=== PATIENT | female | born 1965 | race Caucasian/White ===

== ENCOUNTER 2018-04-12 09:36 | Day surgery (SDC) | payer OTHER, MEDICAID ==
[~2018-04-12 09:36] MED LIST: ceFAZolin 2 GM/DEXTROSE 100 ML IV ONE; ceFAZolin 2 GM/SWFI 2 GM/20 ML SYR IVP ONE
[2018-04-12] MEDS ORDERED: LR 1,000 ML IV ONE (09:42)
[2018-04-12] MEDS ORDERED: BUPIVACAINE 0.5% 30 ML SDV ONE (09:47)
--- NOTE | 2018-04-12 10:20 | PDANEPAE ---
ANE History of Present Illness umbilical hernia repair ANE Past Medical History - Cardiovascular History Hx Hypertension: No Hx Arrhythmias: No Hx Chest Pain: No Hx Coronary Artery / Peripheral Vascular Disease: No Hx CHF / Valvular Disease: No Hx Palpitations: No - Pulmonary History Hx COPD: No Hx Asthma/Reactive Airway Disease: No Hx Recent Upper Respiratory Infection: No Hx Oxygen in Use at Home: No Hx Sleep Apnea: No Sleep Apnea Screening Result - Last Documented: Negative - Neurologic History Hx Cerebrovascular Accident: No Hx Seizures: No Hx Dementia: No - Endocrine History Hx Diabetes: No - Renal History Hx Renal Disorders: No - Liver History Hx Hepatic Disorders: No - Neurological & Psychiatric Hx Hx Neurological and Psychiatric Disorders: No - Cancer History Hx Cancer: No - Congenital Disorder History Hx Congenital Disorders: No - GI History Hx Gastrointestinal Disorders: No - Other Health History Other Health History: none - Chronic Pain History Chronic Pain: No - Surgical History Prior Surgeries: ankle and knee surgery ANE Review of Systems Review of Systems: - Exercise capacity METS (RN): 4 METS ANE Patient History - Allergies Allergies/Adverse Reactions: No Known Allergies Allergy (Verified 04/09/18 16:47) - Home Medications Home Medications: NK [No Known Home Meds] 04/09/18 [Last Taken Unknown] - NPO status NPO Since - Liquids (Date): 04/12/18 NPO Since - Liquids (Time): 09:00 NPO Since - Solids (Date): 04/11/18 NPO Since - Solids (Time): 21:00 - Anes Hx Anes Hx: no prior problems - Smoking Hx Smoking Status: Former smoker - Alcohol Use Alcohol Use: Other (1 drink/2 weeks) - Family Anes Hx Family Anes Hx: none Family Hx Anesthesia Complications: none ANE Labs/Vital Signs - Vital Signs Blood Pressure: 117/76 Heart Rate: 65 Respiratory Rate: 16 O2 Sat (%): 98 Height: 167.64 cm Weight: 77.111 kg ANE Physical Exam - Airway Neck exam: FROM Mallampati Score: Class 1 Mouth exam: normal dental/mouth exam - Pulmonary Pulmonary: clear to auscultation - Cardiovascular Cardiovascular: regular rate and rhythym - ASA Status ASA Status: II ANE Anesthesia Plan Anesthesia Plan: GA with mask
[2018-04-12] MEDS ORDERED: MIDAZOLAM 2 MG/2 ML VIAL IVP ONE (10:40)
[2018-04-12] MEDS ORDERED: CEFAZOLIN 2 GM/DEXTROSE/100 ML BAG IV ONE (10:51)
[2018-04-12] MEDS ORDERED: fentaNYL 100 MCG/2 ML INJ ONE (10:59)
[2018-04-12] MEDS ORDERED: PROPOFOL 200 MG/20 ML VIAL ONE ×2 (10:59→11:18)
[2018-04-12] MEDS ORDERED: LIDOCAINE 1% 300 MG/30 ML SDV ONE (11:07)
[2018-04-12] MEDS ORDERED: fentaNYL 100 MCG/2 ML INJ IVP PRN (11:34)
[2018-04-12] MEDS ORDERED: ONDANSETRON 4 MG/2 ML VIAL IVP PRN (11:34)
[2018-04-12] MEDS ORDERED: NALOXONE HCL 0.4 MG/ML INJ IVP PRN (11:34)
[2018-04-12] MEDS ORDERED: ONDANSETRON DISINTEGRATING 4 MG TAB PO PRN (12:08)
[2018-04-12] MEDS ORDERED: HYDROCODONE/APAP 5/325 TAB PO PRN (12:08)
--- NOTE | 2018-04-12 12:11 | POSTOPPROG ---
Post Op Note Date of Operation: 04/12/18 Surgeon: Yandel Da Silva (, FACS) Anesthesiologist: Frederick Rodríguez MD Anesthesia: Other (Specify) (MAC) Pre-op Diagnosis: umbilical hernia, incarcerated Procedure: repair umbilical hernia Findings: 8mm fascial defect/pre-peritoneal fat Inf/Abcess present in the surg proc area at time of surgery?: No EBL: Minimal (10ml)
[2018-04-12] MEDS ORDERED: HYDROCODONE/APAP 10/325 TAB ONE (12:41)
--- NOTE | 2018-04-12 12:52 | POSTANESTH ---
Post Anesthetic Evaluation Cardiovascular Status: Normal, Stable Respiratory Status: Normal, Stable Level of Consciousness/Mental Status: Can Participate in Eval Pain Control: Adequate, Prn Tx Ordered Nausea/Vomiting Control: Adequate, Prn Tx Ordered Complications Possibly Related to Anesthesia: None Noted
[2018-04-12 12:57] VITALS: BP 111/67
--- NOTE | 2018-04-12 15:57 | PDHPUP ---
History & Physical Update H&P update statement: This history and physical update is based on an assessment of the patient which was completed after admission or registration (within 24 hours), but prior to the surgery/procedure. H&P update: H&P reviewed & patient examined, no change in patient's condition since H&P completed
--- NOTE | 2018-04-12 23:25 | GOP ---
[f rep st] OPERATIVE REPORT DATE OF OPERATION: 04/12/2018 SURGEON: Yandel Da Silva MD, FACS ANESTHESIA: Monitored anesthesia care/IV general. ANESTHESIOLOGIST: Frederick Rodríguez MD. PREOPERATIVE DIAGNOSIS: Umbilical hernia, incarcerated. POSTOPERATIVE DIAGNOSIS: Umbilical hernia, incarcerated. PROCEDURE PERFORMED: Open repair of incarcerated umbilical hernia. FINDINGS: Small 8 mm fascial defect with incarceration of preperitoneal fat, well supported fascial tissues without need for mesh reinforcement. ESTIMATED BLOOD LOSS: 10 mL. DESCRIPTION OF PROCEDURE: After informed consent was obtained, the patient was brought to the operating room and placed under intravenous general anesthesia. The abdomen was prepped and draped in the usual fashion. Before proceeding, a time-out and identification of the patient was performed. The infraumbilical skin was infiltrated with 0.25% Marcaine and incised in a circumumbilical fashion with a 15 scalpel blade. Deep dissection was performed down to the fascia. The hernia was dissected circumferentially and from the overlying umbilical skin. The contents could not be reduced easily despite having fully mobilized the hernia sac. The hernia was dissected carefully down to the fascial defect, which measured approximately 8 mm and after freeing it up completely, it could be reduced into the preperitoneal space. Peritoneal cavity was not entered. The surrounding fascial tissues were well supported and mesh did not appear to offer much advantage. The fascial defect was repaired with interrupted 0 Nurolon sutures transversely. The umbilical skin was tacked to the fascia with interrupted 3-0 Vicryl sutures. Skin was closed with 4-0 Monocryl suture in a subcuticular fashion mass. Topical Dermabond was applied. The patient was returned extubated to the recovery room in satisfactory condition. Needle, sponge, and instrument count correct. COMPLICATIONS: None. /[id number]/MODL MTDD
== END 2018-04-12 13:00 | disposition home or self-care (01) ==
LOC: FSGY 09:36
PROVIDERS: ATTEND Surgery
PROC: 0WQF0ZZ Repair Abdominal Wall, Open Approach (ICD-10-PCS; principal; 2018-04-12 10:45)
DX: K42.0 Umbilical hernia with obstruction, without gangrene (principal); Z87.891 Personal history of nicotine dependence; Z88.0 Allergy status to penicillin
CPT/HCPCS: J0690; J2250; J2704; J3010